=== PATIENT | male | born 1970 | race Caucasian/White ===

== ENCOUNTER 2016-10-29 08:35 | Emergency (ER) | payer OTHER | END 2016-10-29 10:16 | disposition home or self-care (01) | LOC: ER 08:35 | DX: M54.42 Lumbago with sciatica, left side (principal); E11.9 Type 2 diabetes mellitus without complications; Z79.899 Other long term (current) drug therapy; Z88.8 Allergy status to other drugs, medicaments and biological substances; Z79.4 Long term (current) use of insulin | CPT/HCPCS: 96372; J1100; J2270; J2550 ==